=== PATIENT | male | born 1990 | race Caucasian/White ===

== ENCOUNTER 2020-12-05 17:18 | Emergency (ER) | payer BC, SELFPAY ==
[~2020-12-05] VITALS: Ht 188 cm; Wt 78.0 kg
[2020-12-05 17:20] VITALS: BP_SYST 144
--- NOTE | 2020-12-05 17:20 | NUR ---
Patient triaged and placed in waiting room. VSS and patient appears in no acute distress at this time. Accompanied by self , awaiting available bed, and MD notified of need for MSE.
--- NOTE | 2020-12-05 17:25 | NUR ---
Pt brought by self, A&Ox4, pt presents to ER with increase HR, pt diagnosed with covid 2 weeks ago, afebrile , HR 125, O2 96 %, skin pink and warm, cap refill <3.
--- NOTE | 2020-12-05 17:30 | NUR ---
Dr Cordoba evaluating patient in the tent
[2020-12-05 18:26] LABS: BASOPHILS % (AUTO) 0.3 % (0.0-2.0); EOSINOPHILS # (AUTO) 0.1 K/uL (0.0-0.4); HEMATOCRIT 41.4 % (36-54); HEMOGLOBIN 14.8 g/dL (14.0-18.0); LYMPHOCYTES # (AUTO) 1.8 K/uL (1.0-5.5); LYMPHOCYTES % (AUTO) 22.2 % (20.5-51.5); MEAN CORPUSCULAR HEMOGLOBIN 30 pg (27-31); MEAN CORPUSCULAR HGB CONC 36 % (32-36); MEAN CORPUSCULAR VOLUME 84 fL (79.0-98.0); MONOCYTES # (AUTO) 1.1 K/uL (0.0-1.0); MONOCYTES % (AUTO) 13.6 % (1.7-9.3); NEUTROPHILS % (AUTO) 62.9 % (40.0-70.0); PLATELET COUNT (AUTO) 387 K/uL (130-430); RED BLOOD CELL COUNT(AUTO) 4.92 MIL/uL (4.2-6.2); RED CELL DISTRIBUTION WIDTH 12.1 % (9.0-15.0)
[2020-12-05 18:40] LABS: CALCIUM 9.1 mg/dL (8.4-11.0); CREATININE 0.69 mg/dL (0.55-1.30); POTASSIUM 4.1 mmol/L (3.5-5.1)
[2020-12-05 18:48] LABS: ALBUMIN 3.4 g/dL (3.4-4.8); TOTAL BILIRUBIN 0.3 mg/dL (0.0-1.0)
[2020-12-05] MEDS ORDERED: ALBMDI INH (19:20)
[2020-12-05] MEDS ORDERED: ZIT250 PO (19:20)
[2020-12-05] MEDS ORDERED: IBUP-1969 PO (19:20)
[2020-12-05] MEDS ORDERED: AMOX-426 PO (19:20)
[2020-12-05 19:30] VITALS: BP_SYST 144
--- NOTE | 2020-12-05 19:30 | NUR ---
Patient given written and verbal discharge instructions and verbalizes understanding. DR. MARSHALL OJEDA MD discussed with patient the results and treatment provided. Patient in stable condition. ID arm band removed. Rx of VENTOLIN, AUGMENTIN, IBUPROFEN, ZITHROMAX given. Patient educated on pain management and to follow up with PMD. Pain Scale 0/10. Opportunity for questions provided and answered. Medication side effect fact sheet provided.
== END 2020-12-05 19:30 | disposition home or self-care (01) ==
LOC: SED 17:18
DX: U07.1 COVID-19 (principal); Z79.899 Other long term (current) drug therapy
CPT/HCPCS: 36415; 71045; 80053; 83880; 84484; 85025; 85379; 93005; 99285